=== PATIENT | female | born 1960 | race Caucasian/White ===

== ENCOUNTER 2017-05-03 13:59 | Emergency (ER) | payer OTHER ==
[~2017-05-03] VITALS: Ht 162.6 cm; Wt 81.7 kg
[~2017-05-03 13:59] MED LIST: BENTYL20 MG PO; CLEOCIN300 MG PO; PERCOCET 5/31 TABLET PO; REGLAN10 MG PO; ZOFRAN ODT4 MG PO
[2017-05-03 16:31] LABS: HEMATOCRIT 39.3 % (36.0-46.0); HEMOGLOBIN 13.1 G/DL (11.9-15.5); MCH 28.5 PG (29.0-34.0); MCHC 33.3 G/DL (30.0-36.0); MCV 85.4 FL (83-99); PLATELET COUNT 282 K/uL (156-360); RBC DIS.WIDTH-CV 13.4 % (11.8-14.6); RBC DIS.WIDTH-SD 41.4 % (39-53)
[2017-05-03 16:44] LABS: CHLORIDE 100 mEq/L (99-109); POTASSIUM 4.4 mEq/L (3.7-5.4); SODIUM 139 mEq/L (136-147)
[2017-05-03 16:46] LABS: GLUCOSE 92 mg/dL (70-99)
[2017-05-03 16:50] LABS: CREATININE 0.8 mg/dL (0.6-1.3); GFR ESTIMATE (CALCULATED) > 59 mL/min/
[2017-05-03 16:51] LABS: UREA NITROGEN (BUN) 11 mg/dL (9-23)
[2017-05-03 17:35] LABS: TROP-I INTERPRETATION NEGATIVE; TROPONIN-I < 0.01 ng/mL (0.0-0.30)
[2017-05-03] MEDS ORDERED: PRILOSEC20 MG PO (18:17)
[2017-05-03] MEDS ORDERED: CAPITAL WITH C473 ML PO (19:19)
[2017-05-03] MEDS ORDERED: ZANTAC300 MG PO (19:20)
[2017-05-03] MEDS ORDERED: OMEPRAZOLE40 M1 PO (19:20)
[2017-05-03 19:42] VITALS: BP 119/79
== END 2017-05-03 19:43 | disposition home or self-care (01) ==
LOC: EME 13:59
PROVIDERS: Nurse Practitioner Family
DX: K21.9 Gastro-esophageal reflux disease without esophagitis (principal); R91.1 Solitary pulmonary nodule; R05 Cough; I25.2 Old myocardial infarction; Z88.0 Allergy status to penicillin; Z88.6 Allergy status to analgesic agent
CPT/HCPCS: 70450; 71046; 71275; 80048; 83880; 84484; 85027; 93005; 99281; 99285; J1200; J1885; J2060; J2765; J7030

== ENCOUNTER 2017-11-13 17:25 | Emergency (ER) | payer OTHER ==
[~2017-11-13] VITALS: Ht 157.5 cm; Wt 80.3 kg
[~2017-11-13 17:25] MED LIST changes: +CAPITAL WITH C473 ML PO; +OMEPRAZOLE40 M1 PO; +PRILOSEC20 MG PO; +ZANTAC300 MG PO
[2017-11-13 22:24] VITALS: BP 172/91
== END 2017-11-13 22:25 | disposition home or self-care (01) ==
LOC: EME 17:25
DX: S90.32XA Contusion of left foot, initial encounter (principal); S73.101A Unspecified sprain of right hip, initial encounter; W10.9XXA Fall (on) (from) unspecified stairs and steps, initial encounter; Z88.0 Allergy status to penicillin; Z88.6 Allergy status to analgesic agent
CPT/HCPCS: 73502; 73630; 99281; 99284